=== PATIENT | female | born 1940 | race Caucasian/White ===

== ENCOUNTER → 2020-10-08 08:52 | Outpatient (BNVA) | payer MEDICARE, SELFPAY | PROVIDERS: Family Provider Nurse Practitioner Primary Care; PCP Family Medicine; Visit Provider Family Medicine | DX: R39.198 Other difficulties with micturition (principal) | CPT/HCPCS: 81000 ==

== ENCOUNTER → 2022-11-01 16:44 | Outpatient (BNVA) | payer MEDICARE, SELFPAY | PROVIDERS: Family Provider Nurse Practitioner Primary Care; PCP Family Medicine; Visit Provider Nurse Practitioner Family | DX: R53.83 Other fatigue (principal); I10 Essential (primary) hypertension | CPT/HCPCS: 80053; 84443; 85025 ==

== ENCOUNTER → 2023-08-02 11:12 | Outpatient (BNVA) | payer MEDICARE, SELFPAY | PROVIDERS: Family Provider Nurse Practitioner Primary Care; PCP Family Medicine; Visit Provider Nurse Practitioner Family | DX: M79.604 Pain in right leg (principal); M79.605 Pain in left leg; G62.9 Polyneuropathy, unspecified; I10 Essential (primary) hypertension; E78.5 Hyperlipidemia, unspecified; F51.01 Primary insomnia; Z78.9 Other specified health status; Z79.899 Other long term (current) drug therapy | CPT/HCPCS: 80053 ==

== ENCOUNTER 2025-01-27 05:00 | Outpatient (RCR) | payer MEDICARE, SELFPAY | END 2025-02-26 23:59 | disposition home or self-care (01) | LOC: SOT 05:00 | PROVIDERS: Visit Provider Family Medicine | DX: R00.1 Bradycardia, unspecified (principal) | CPT/HCPCS: 97167 ==